=== PATIENT | female | born 1990 | race Caucasian/White ===

== ENCOUNTER 2016-05-29 14:17 | Inpatient (IN) ==
[2016-05-29] MEDS ORDERED: Naloxone 0.4 MG/ML INJ IVP PRN (14:29)
[2016-05-29] MEDS ORDERED: Ondansetron 4 MG/2 ML VIAL IVP PRN (14:29)
[2016-05-29] MEDS ORDERED: Famotidine 20 MG/2 ML VIAL IVP PRN (14:29)
[2016-05-29] MEDS ORDERED: Ringers Solution, Lactated 1,000 ML IVC SCH (14:30)
[2016-05-29] MEDS ORDERED: Oxytocin 20 units/ LR 1000 mL 20 UNIT/1,000 ML BAG IVC SCH (14:30)
[2016-05-29] MEDS ORDERED: *HR* Nalbuphine 20 MG/ML AMPUL IVP PRN (14:31)
--- NOTE | 2016-05-29 15:33 | OB/GYN History & Physical ---
Date of Encounter: 05/29/16 Time of Encounter: 15:29 Assessment and Plan (1) 39 weeks gestation of Current visit: Yes Status: Acute Patient admitted for delivery (2) Spontaneous rupture of amniotic membranes Current visit: Yes Status: Acute Will start Pitocin for labor augmentation Patient may have nubain or epidural for pain medication History of Present Illness Chief complaint: SROM HPI: Ms. Vela is a 26 year old female at 39w4d presents to labor and delivery from OB office. Patient states her water broke at 0745 this morning but she waited on her appointment to be checked. Meconium stained fluid was noted on exam by KOLBY Sharma. Patient was dilated 4.5 cm. Patient reports +FM, denies VB. Reports irregular contractions. Blood type: O+, Rubella: Immune, Hep B: Negative, GBS: negative. Will admit for delivery and augment labor with pitocin. Patient has been ruptured for almost 8 hours. Past Med Surg Social Fam HX - Past Medical History Source: patient Medical history: no medical history Psychiatric history: no psych history - Past Surgical History Surgical History: other (wisdom teeth) - Social History Smoking Status: Former smoker Alcohol use: none Drug use: none - Family History Father Name: Jeffy Age: 48 Hx Family Cardiac Disorders: Yes (HTN) Obstetrical History - Pregnancies : 1 Para: 0 Term: 0 : 0 Ab's: 0 Livin Medications and Allergies Vit/Iron Fumarate/FA [ Tablet] 1 tab PO DAILY 05/29/16 [History ] Allergies No Known Allergies Allergy (Verified 05/29/16 14:53) Review of System OB - Constitutional Constitutional ROS IM: no chills, no fever(s), no headache(s) - Cardiovascular Cardiovascular: no chest pain, no dyspnea, no edema, no palpitations, no pedal edema, no rapid heart rate, no slow heart rate, no syncope - Respiratory Respiratory: no dyspnea - Gastrointestinal Gastrointestinal: no diarrhea, no heartburn, no nausea, no vomiting - Genitourinary Genitourinary: no abnormal vaginal bleeding, no dysuria, no flank pain, no urinary frequency, no urinary incontinence, no vaginal discharge, no vaginal odor, no vaginal pruritis Exam - Constitutional Constitutional: well developed, well nourished, no acute distress, average body habitus - HEENT HEENT: Normocephaly, Mucus Membranes Moist - Neck Neck exam: full ROM, supple - Lungs Respiratory exam: CTAB - Cardiovascular Cardiovascular exam: RRR, +S1, +S2 - Abdomen Abdomen: Present: bowel sounds normal, gravid, non tender - Extremities Extremities exam: full ROM, normal capillary refill, normal inspection Deep Tendon Reflex Grade: 2+ Normal - Cervix Dilation: 5 (per CNM in office) Effacement: 70 Station: -2 - Anus/Rectum Anus/Rectum: Present: normal perianal skin - Comments Comments: 135 bpm moderate variability +15x15 accels no decels noted. CAt. 1 tracing. Contractions 3-5 min apart. Results All other labs normal. - VTE Reasons for not Prescribing Prophylaxis: Treatment not Indicated - Low risk for VTE
[2016-05-29 15:34] LABS: Basophils % 0.2 %; Eosinophils # 0.1 K/mcL (0.0-0.6); Eosinophils % 0.8 %; Hematocrit 35.6 % (35.3-44.9); Hemoglobin 12.1 g/dL (11.5-15.4); Immature Granulocytes % 1.3 % (0-4); Lymphocytes # 2.4 K/mcL (0.6-4.6); Lymphocytes % 21.1 %; Mean Corpuscular Hemoglobin 30.6 pg (28.0-33.3); Mean Corpuscular Volume 89.9 fL (83.0-100.0); Monocytes # 0.7 K/mcL (0.0-1.3); Monocytes % 6.2 %; Platelet Count 198 K/mcL (140-400); Red Blood Count 3.96 M/mcL (3.82-4.97); Red Cell Distribution Width 13.7 % (11.5-14.5); Segmented Neutrophils % 70.4 %
[2016-05-29] MEDS ORDERED: EPHEDrine 50 MG/ML VIAL IVP PRN (16:38)
[2016-05-29] MEDS ORDERED: Ringers Solution, Lactated 500 ML IVC ONE (16:38)
[2016-05-29] MEDS ORDERED: Epidural Premix (fent/bupiv) 110 ML EP SCH (16:45)
--- NOTE | 2016-05-29 16:52 | OB Labor Progress Note ---
Date of Encounter: 05/29/16 Time of Encounter: 16:50 Labor Progress Note - Subjective Subjective: Patient resting in bed, reports mild pain occasionally. POC discussed with patient. Patient denies any questions or concerns. - Cervix Cervix: 6/90/-1 - Heart Tones Heart Tones: 125 bpm moderate variability +15x15 accels, occasional variable noted. - [place]: every 4 min - Interventions Interventions: SVE, moderate amount of brown fluid noted however, a bulging forebag was noted and ruptured. Patient tolerated well. - Plan Plan: Epidural for pain management. Continue labor management.
[2016-05-29] MEDS ORDERED: Epidural Premix (fent/bupiv) 110 ML EP ONE (17:03)
--- NOTE | 2016-05-29 17:38 | Anesthesia Evaluation PreOp ---
Date of Encounter: 05/29/16 Time of Encounter: 17:36 - Past History Planned Operation: KAUSHAL Cardiac History: Denies any Significant Hx Pulmonary History: Denies Any Significant HX PHYSIOTHERAPY ASSISTANT History: Denies Any Significant HX Other Medical History: Denies Any Significant HX Anesthesia History: No Prior Anesthetic Complications, Past Anesthesia : Yes Alcohol Use: none Drug use: none, marijuana (occa) Medications and Allergies Vit/Iron Fumarate/FA [ Tablet] 1 tab PO DAILY 05/29/16 [History ] Allergies No Known Allergies Allergy (Verified 05/29/16 14:53) - Meds/Allergy Pre-op Review Medications Reviewed: Yes Allergies Reviewed: Yes Beta Blockers on Current Med List: No Anesthesia Results - Labs 05/29/16 15:16 Anesthesia Exam Height: 1.68m Weight: 80kg NPO (# of Hours): 5 Pain Scale: 4 Pain Scale Used: Numeric (1 - 10) - HEENT Pupil (Motor): Pupils equal Mallampati: II Teeth: Normal Oral Opening: Greater than 3 - PHYSIOTHERAPY ASSISTANT LOC: Oriented PHYSIOTHERAPY ASSISTANT Motor: Normal RUE, Normal LUE, Normal RLE, Normal LLE, Normal Face PHYSIOTHERAPY ASSISTANT Sensory: Normal: RUE, LUE, RLE, LLE, Face - Cardiac Rhythm: Regular Murmur: None JVD: No Carotid Bruit: No - Pulmonary Breath Sounds: bilateral Clear Respiratory Effort: Symmetrical Anesthesia Assess/Plan ASA Score: 2 Modified Cony Scale for Level of Consciousness: Cooperative, oriented, and tranquil Anesthetic Plan: General (plan a), Regional (plan b) Autologous Blood: Yes Monitoring Plan: Standard Monitors
--- NOTE | 2016-05-29 17:40 | Anesthesia Procedures ---
Date of Encounter: 05/29/16 Time of Encounter: 17:38 Procedures: Anesthesia - Epidural/Spinal Patient ID/Chart reviewed: Yes Patient examined: Yes OB Eval: Gestational age: 39.4 OB Eval: : 1 OB Eval: Hx Para: 0 OB Eval: Dilated at (cm): 6 OB Eval: Contractions: Non-stressed pattern Consent Obtained: Yes Supplemental Oxygen: None/Room Air Site Prep: Aseptic Technique, Sterile prep and drape, Povidone-Iodine 1% Patient position: upright Local Anesthetic: Lidocaine 1% Amount of Local Anesthetic used: 3 Touhy Needle Gauge: 18 Touhy Needle Depth (cm): 8 Catheter Depth at Skin (cm): 15 Test Dose (1.5% Lido + Epi): Volume given (mls): 5 Test Dose Result: Negative Loading Dose: Other: 5ml of epidural pharm bag premix solution Loading Dose Administered: Thru Catheter Infusion Med: 0.125% Bupivacaine w/ 2 mcg/ml Fentanyl Infusion Rate (mls/hr): [address]: Tegaderm, Tape Interspace Used: L3-L4 Loss of Resistance (NADINE): Yes Blood: No CSF: No Paresthesia: No Procedure: pt tolerated procedure well. no complications. vss. fhr stable. 121/74 hr 71 119/84 hr 71 fhr 135
--- NOTE | 2016-05-29 20:40 | OB Labor Progress Note ---
Date of Encounter: 05/29/16 Time of Encounter: 20:38 Labor Progress Note - Subjective Subjective: Patient resting comfortably with epidural in place. Patient denies any needs at this time. - Cervix Cervix: 9.5/100/0 - Heart Tones Heart Tones: 125 bpm moderate variability +15x15 accels no decels noted. Cat. 1 tracing. - [place]: 1-3 min apart - Interventions Interventions: SVE and pericare. - Plan Plan: Continue labor management.
[2016-05-29] MEDS ORDERED: Lidocaine/EPI 1:100k 1% 30 ML VIAL ONE (22:51)
--- NOTE | 2016-05-29 23:37 | OB/GYN Procedure Note ---
Delivery - Delivery Date: 05/29/16 Provider: Laine Quach Intrapartum events: meconium Delivery induction: none Delivery augmentation: pitocin Delivery monitor: external FHT, external uterine Anesthesia: epidural Estimated Blood Loss: 400 - Infant (s) A Infant Delivery Date: 05/29/16 Infant Delivery Time: 22:48 Presentation: vertex Position: LOGAN Route of delivery: Gender: Female Viability: Viable Pounds: 7 Ounces: 13 Weight Gram: 3535 kg at 1 minute: 8 at 5 mins: 9 Shoulder Dystocia: not encountered Specimens collected: cord blood Placenta: spontaneous Cord: nuchal cord (X1), 3 umbilical vessels, delivered through nuchal - Repair Episiotomy: none Laceration Description: Perineal - 2nd Degree (repaired with 3-0 vicryl) - Complications Delivery complications: none - Disposition Mom disposition: stable in LDR [place] disposition: stable in LDR - Comments Comments: Called to LDR, patient beginning to feel pressure. SVE: complete and +2 station. Patient began pushing with contractions. Patient was placed in stirrups and prepped for delivery. Patient continued to push with contractions. Spontaneously delivered and female over a second degree perineal laceration. Nuchal x1 loose and infant delivered through it. was vigorous and began crying immediately. Both Nursery and Respiratory therapy were at bedside for meconium stained fluid. was placed on maternal abdomen. Cord was clamped and cut after pulsation ceased. Cord blood was collected. 2nd degree laceration was repaired with 4-0 vicryl. Patient tolerated well. Placenta then delivered spontaneously and intact. 3 vessel cord was noted. Pericare provided. All counts correct. Both mother and stable in LDR for recovery.
[2016-05-30] MEDS ORDERED: *HR* HYDROcodone/Acet 5/325 mg TABLET PO PRN (01:52)
[2016-05-30] MEDS ORDERED: Oxytocin 20 units/ LR 1000 mL 20 UNIT/1,000 ML BAG IVC SCH (01:52)
[2016-05-30] MEDS ORDERED: Acetaminophen 325 MG TABLET PO PRN (01:52)
[2016-05-30] MEDS: Ibuprofen 600 MG TABLET PO PRN ×3 (02:25→22:35)
[2016-05-30] MEDS: Benzocaine/Menthol 56 GM AEROSOL SPRAY TP PRN ×2 (08:38→22:34)
[2016-05-30] MEDS: Prenatal Vit/FA 1 EACH TABLET PO SCH (08:38)
[2016-05-30] MEDS: Lanolin 7 G OINT...G. TP PRN ×2 (08:38→22:36)
--- NOTE | 2016-05-30 08:53 | OB/GYN Progress Note ---
Date of Encounter: 05/30/16 Time of Encounter: 08:51 - Assessment and Plan (1) (normal spontaneous vaginal delivery) Current Visit: Yes Status: Acute Pt meeting day 1 milestones. Continue to work on latch. Anticipate discharge home PPD#2. (2) Mother currently breast-feeding Current Visit: Yes Status: Acute Subjective - Subjective Patient reports: appetite normal, voiding normally, pain well controlled, ambulating normally [place]: doing well Objective - Latest Vital Signs Latest vital signs: Vital Signs Temp Pulse Resp BP Pulse Ox 05/30/16 08:46 16 05/30/16 04:14 98.1 F 59 16 116/66 97 05/30/16 02:45 98.1 F 64 16 124/79 97 05/30/16 01:45 98.0 F 65 16 129/81 97 Intake and Output 05/29/16 05/30/16 05/30/16 23:59 07:59 15:59 Intake Total 0 / 0 Output Total 500 / 500 Balance -500 / -500 Intake: Oral 0 / 0 Output: Urine 500 / 500 Other: Weight 76.3 kg Patient Weight 05/30/16 23:59 Weight 76.3 kg - Exam Lungs: bilateral: normal Chest: Normal S1, Normal S2 Extremities: Present: normal Abdomen: Present: soft. Absent: tenderness Uterus: Present: firm Uterus Position: 2 Fingers Below Umbilicus - Labs Labs: Laboratory Results - last 24 hr 05/29/16 15:16 WBC 11.4 H RBC 3.96 Hgb 12.1 Hct 35.6 MCV 89.9 MCH 30.6 MCHC 34.0 RDW 13.7 Plt Count 198 MPV 11.0 Immature Gran % 1.3 Seg Neutrophils % 70.4 Lymphocytes % 21.1 Monocytes % 6.2 Eosinophils % 0.8 Basophils % 0.2 Neutrophils # 8.0 Lymphocytes # 2.4 Monocytes # 0.7 Eosinophils # 0.1 Basophils # 0.0
[2016-05-31] MEDS: Prenatal Vit/FA 1 EACH TABLET PO SCH (08:02)
[2016-05-31] MEDS: Ibuprofen 600 MG TABLET PO PRN (08:03)
[2016-05-31 08:16] VITALS: BP 123/76
--- NOTE | 2016-05-31 09:03 | Discharge Summary ---
Date of Encounter: 05/31/16 Time of Encounter: 09:01 - Discharge Diagnosis (1) 39 weeks gestation of Priority: Secondary Status: Acute (2) Spontaneous rupture of amniotic membranes Priority: Primary Status: Acute Comments: admitted for delivery (3) Vaginal delivery Priority: Primary Status: Acute Comments: Continue routine care discharge home today follow up with KOLBY Cristobal in 4-6 weeks (4) Breast feeding status of mother Priority: Secondary Status: Acute Comments: support prn (5) Second degree perineal laceration during delivery Priority: Secondary Status: Acute Comments: Continue perineal care Continue colace daily - Discharge Medications Prescriptions: Ibuprofen [Motrin] 600 mg PO Q6HR PRN #60 tablet PRN Reason: Cramping Breast Pump [BREAST PUMP] 1 each .ROUTE AD #1 each Calcium Carbonate [Calcium] 500 mg PO DAILY #30 tablet Docusate [Colace] 100 mg PO BID #60 capsule Home Medications: Vit/Iron Fumarate/FA [ Tablet] 1 tab PO DAILY 05/29/16 [History ] Benzocaine/Menthol [place] [Dermoplast [place]] 1 appl TP QID PRN #0 aerosol [Rx] Breast Pump [BREAST PUMP] 1 each .ROUTE AD #1 each 05/31/16 [Rx] Calcium Carbonate [Calcium] 500 mg PO DAILY #30 tablet 05/31/16 [Rx] Docusate [Colace] 100 mg PO BID #60 capsule 05/31/16 [Rx] Ibuprofen [Motrin] 600 mg PO Q6HR PRN #60 tablet 05/31/16 [Rx] Lanolin [Lansinoh] 1 appl TP TID PRN #0 oint...g. 05/31/16 [Rx] Vit/FA 1 each PO DAILY tablet 05/31/16 [Rx] Allergies/Adverse Reactions: Allergies No Known Allergies Allergy (Verified 05/29/16 14:53) Data Procedures and tests throughout hospitalization: Laboratory Tests 05/29/16 15:16 WBC 11.4 H RBC 3.96 Hgb 12.1 Hct 35.6 MCV 89.9 MCH 30.6 MCHC 34.0 RDW 13.7 Plt Count 198 MPV 11.0 Immature Gran % 1.3 Seg Neutrophils % 70.4 Lymphocytes % 21.1 Monocytes % 6.2 Eosinophils % 0.8 Basophils % 0.2 Neutrophils # 8.0 Lymphocytes # 2.4 Monocytes # 0.7 Eosinophils # 0.1 Basophils # 0.0 Date of admission: 05/29/16 14:17 Primary care physician: PCP JULIAN Consults: 05/30/16 01:52 Consult to Pouncing Machine Operator [CONS] Routine Comment: Vaginal delivery, consult needed Consult to Diagnostic Medical Sonographer [CONS] Routine Reason for SW Consult: cord stat for marijuana use prior to Discharging clinician: Laine Quach Anticipated date of discharge: 05/31/16 - Patient Status Disposition: Home, Self-Care Condition: Good Functional capacity at discharge: independent ambulation - Discharge Instructions Follow Up With: JULIAN,PCP [Primary Care Provider] - Laine Quach CNM [Non-Partnered Physician] - - Diet and Activity Activity: increase activity as tolerated Diet: regular diet Hospital Course Reason for admission: active labor, rupture of membranes Delivery: Episiotomy: none Laceration: 2nd degree Other procedures: none complications: none Discharge diagnosis: IUP at term delivered [place] baby: female (breast feeding) Time Attestation: Total time spent providing and/or coordinating discharge services: Time Spent: Less than 30 minutes Exam - Constitutional Vitals: Temp Pulse Resp BP Pulse Ox 98 F 71 14 123/76 95 05/31/16 08:00 05/31/16 08:00 05/31/16 08:00 05/31/16 08:00 05/31/16 08:00 General appearance IM: A&O X 3, pleasant, no acute distress, answers questions appropriately - Respiratory Respiratory exam: Present: CTAB - Cardiovascular Cardiovascular exam IM: Present: RRR, +S1, +S2 - GI/Abdominal GI/Abdominal exam IM: normal bowel sounds - Uterine Tone: Firm Uterus Position: 2 Fingers Below Umbilicus, Midline - Extremities Exam Extremities exam IM: Present: full ROM, normal inspection - Neurological Exam Neurological exam: alert, oriented X3, reflexes normal
== END 2016-05-31 11:25 | disposition home or self-care (01) | DRG 560 ==
LOC: 1NENULAB → OBSVTOIN 14:17 → 1NENUOBS 05-30 01:41
PROVIDERS: ADMIT Obstetrics & Gynecology; ATTEND Obstetrics & Gynecology